=== PATIENT | female | born 1955 | race Native Hawaiian/Other Pacific Islander ===

== ENCOUNTER 2022-12-10 08:29 | Emergency (ER) | payer MEDICARE, MEDICAID, SELFPAY ==
[2022-12-10 08:35] VITALS: BP 168/74; PULSE 92; RESP 16; TEMP 36.1; O2SAT 96; BMI 34.2
--- NOTE | 2022-12-10 08:55 | ED.NURSE ---
given ice to the swollen right hand/wrist area.
--- NOTE | 2022-12-10 09:09 | CRLHL7_ITS ---
For Patients: As a result of the Century Cures Act, medical imaging exams and procedure reports are released immediately into your electronic medical record. You may view this report before your referring provider. If you have questions, please contact your health care provider. Indication: Injury and pain Technique: Right wrist 3 view Comparison: None Findings: There is a comminuted and displaced intra-articular fracture of the distal radial metaphysis. There is up to 3 millimeters of articular surface diastasis along with 2 millimeters of articular surface dorsal impaction at the posterior aspect. Carpal bones are maintained. Intact distal ulna. Impression: Displaced and comminuted intra-articular distal radial metaphyseal fracture with dorsal impaction. Dictated by Valeriano Franz MD @ 12/10/2022 9:34:50 AM (Electronically Signed)
--- NOTE | 2022-12-10 09:09 | CRLHL7_ITS ---
For Patients: As a result of the Century Cures Act, medical imaging exams and procedure reports are released immediately into your electronic medical record. You may view this report before your referring provider. If you have questions, please contact your health care provider. Indication: Fall, thumb pain Technique: Three views right thumb Comparison: None Findings: The 1st metacarpal and thumb phalanges are intact. Degenerative spurring at the thumb IP joint. Distal radial fracture. Impression: Distal radial fracture is present. Dictated by Valeriano Franz MD @ 12/10/2022 9:33:37 AM (Electronically Signed)
[2022-12-10] MEDS: TRAMADOL HCL 50 MG TABLET PO (09:24)
[2022-12-10 10:09] VITALS: PULSE 82; O2SAT 98
--- NOTE | 2022-12-10 10:39 | ED_ITS ---
HPI - Extremity Injury (Upper) General Chief Complaint: Extremity Pain/Injury, Upper Stated Complaint: Fall down, pain in right hand Time Seen by Provider: 12/10/22 08:33 Source: patient and family Mode of arrival: ambulatory Limitations: language barrier (Patient Admitting Clerk used) History of Present Illness HPI narrative: [age] year old female presents to the ED after falling on the ice in her driveway last night. Fall was approximately hours prior to arrival. Had immediate pain in the left wrist. Does have some pain in the left thumb and left elbow but only when moving the thumb. She notes swelling and some de formity. Points at the distal radius as the area of pain. She tried taking some Tylenol with limited improvement in her symptoms. Her son urged her to come in. No fever, no recent surgical procedures. She does take aspirin for cardiac prophylaxis in the setting of diabetes. No prior heart disease. Denies loss of consciousness, head injury or any other affected areas. Past medical history notable for hypertension, type 2 diabetes. She does have diabetic neuropathy. Her medications are reviewed and accurate per listed. Allergies are to codeine which caused vomiting. Socially she is a nonsmoker with no alcohol or illicit drug use. No pertinent travel. Related Data Home Medications Medication Instructions Recorded Confirmed aspirin 81 mg chewable tablet 81 mg PO DAILY 12/10/22 12/10/22 (Aspirin Childrens) gabapentin 100 mg capsule 100 mg PO BID 12/10/22 12/10/22 lisinopril 10 mg tablet 10 mg PO DAILY 12/10/22 12/10/22 metformin 1,000 mg tablet 1,000 mg PO BID 12/10/22 12/10/22 rosvastatin 10 mg PO DAILY 12/10/22 12/10/22 Previous Rx's Medication Instructions Recorded tramadol 50 mg tablet 50 mg PO Q8H PRN pain #14 tabs 12/10/22 Allergies Allergy/AdvReac Type Severity Reaction Status Date / Time codeine Allergy Mild vomit Verified 12/10/22 08:43 PFS PFS Medical History Diabetes Hypertension Neuropathy Social History Smoking Status: Never smoker Do you use any of these nicotine containing products: None How often do you have a drink containing alcohol: never How often do you have six or more drinks on one occasion: Never AUDIT-C Alcohol total score: 0 Non-prescribed substance use: denies use service: No Exam Const: Vital Signs, click to edit/add: Vital Signs - 24 hr 12/10/22 08:35 12/10/22 10:09 Temperature 96.9 F L Pulse Rate [Left P ulse Oximeter] 92 82 Respiratory Rate 16 Blood Pressure [Ri ght Upper Arm] 168/74 H Pulse Oximetry 96 98 Oxygen Delivery Me thod Room Air Room Air Documenting provider has reviewed patient's vital signs: yes Common normals: no apparent distress General appearance: cooperative, comfortable and well kempt HENMT: Common normals: normocephalic and head/scalp atraumatic Head and scalp: normocephalic and atraumatic Mouth: oral and palatal mucosa normal Throat: posterior oropharynx normal Eye: Common normals: EOMs intact bilaterally General eye: normal appearance of both eyes Resp: Common normals: normal respiratory effort and clear to auscultation bilaterally Effort & inspection: able to speak in complete sentences Auscultation: clear to auscultation bilaterally Cardio: Common normals: regular rate, regular rhythm, S1 normal heart sound, S2 normal heart sound and peripheral pulses 2+ throughout Rate: regular rate Rhythm: regular rhythm Heart sounds: S1 normal and S2 normal Peripheral pulses: pulses 2+ throughout Other: Normal radial pulses bilaterally and normal capillary refill of all fingers. Extremity: Other: Left wrist normal, left forearm normal, left hand normal all with normal range of motion. The right elbow has no swelling, tenderness or deformity and has normal range of motion. The fingers on the right hand all have normal abduction and adduction. The thumb has normal flexion, extension and opposition. There is significant swelling to the right CMC joint and deformity noted at the right distal radius. Good radial pulses and normal capillary refill. Point tenderness at the distal radius noted. She does have actually have fairly good flexion and extension abduction and adduction at the wrist. Neuro: Other: No sensory or motor deficits to hand Psych: Common normals: speech normal Appearance: well kempt Speech: normal speech Mood and affect: euthymic mood Insight: insight good Judgement: judgment good Skin: Narrative: No broken skin or abrasions over the area of suspected fracture. Significant bruising of right wrist and hand Course Vital Signs Vital signs: Initial Vital Signs Temperature 96.9 F L 12/10/22 08:35 Temperature Source Temporal Artery Scan 12/10/22 08:35 Pulse Rate 92 12/10/22 08:35 Pulse Rhythm 12/10/22 08:35 Respiratory Rate 16 12/10/22 08:35 Blood Pressure 168/74 H 12/10/22 08:35 Blood Pressure Mean 105 12/10/22 08:35 Blood Pressure Position Sitting 12/10/22 08:35 Pulse Oximetry 96 12/10/22 08:35 Oxygen Delivery Method 12/10/22 08:35 Vital Signs Temperature 96.9 F L 12/10/22 08:35 Pulse Rate 92 12/10/22 08:35 Respiratory Rate 16 12/10/22 08:35 Blood Pressure 168/74 H 12/10/22 08:35 Pulse Oximetry 96 12/10/22 08:35 Oxygen Delivery Method 12/10/22 08:35 Temperature 96.9 F L 12/10/22 08:35 Pulse Rate 82 12/10/22 10:09 Respiratory Rate 16 12/10/22 08:35 Blood Pressure 168/74 H 12/10/22 08:35 Pulse Oximetry 98 12/10/22 10:09 Oxygen Delivery Method 12/10/22 10:09 MDM - Extremity Injury (Upper) MDM Narrative Medical decision making narrative: Suspect fracture. X-rays performed. Trial of tramadol to see how well she tolerates this. Update: Per my interpretation, fracture of distal radius appears to be comminuted with a couple of pieces including extension into the joint line. This is confirmed with radiology report. Because of this I made a call to [facility], they are recommending splinting, outpatient follow-up, will need surgery with plate and screws. This was discussed with patient. She was placed in a short-arm splint with good anatomic alignment. Well tolerated. The tramadol did improve her pain and she did tolerate this well. We discussed Tylenol, ibuprofen, keeping the splint dry, tramadol as needed for severe pain. Ortho will call patient to set up outpatient follow-up and surgery. All questions answered, she verbalizes understanding and agreement. Discharge Plan Discharge Clinical Impression: Closed fracture of head of right radius Patient Disposition: Home w/ Parent or Adult Condition: Improved Instructions: Wrist Fracture in Adults (ED) Additional Instructions: You have fractured your wrist, specifically the radius bone. This is broken technically in 2 places and will need surgery. The registration specialist recommends putting in a plate and some screws to better stabilize this. This will improve healing overall and improve the long-term function of your hand. We need willing to go down for a few days, they will call you and schedule the surgery, likely the middle of next week. Please stop her aspirin in the meantime. It is okay to take Tylenol and/or ibuprofen as needed for pain. I will also send some of the tramadol pills to the pharmacy if the pain is very bothersome. Use the sling if it is more comfortable for you, you are not required to use it. Arm out of the sling when you are resting and especially while sleeping so that you can move your elbow and wrist around to prevent stiffness. Do not get the splint wet. It is okay to try to use plastic coverings and bags in multiple layers to help prevent wetness but showers are not recommended. Sponge baths with help are okay. Te has fracturado la mu?eca, concretamente el hueso del radio. Hilger est? roto t?cnicamente en 2 lugares y necesitar? cirug?a. El ortopedista recomienda poner brenda placa y unos tornillos para estabilizar mejor esto. Hilger mejorar? la curaci?n en general y mejorar? la funci?n a lucrecia plazo de fisher mano. Necesitamos estar dispuesto a bajar por unos d?as, lo llamar?n y programar?n la cirug?a, probablemente a mediados de la pr?xima semana. Por favor, det?n fisher aspirina mientras tanto. Est? omar luis miguel Tylenol y/o ibuprofeno seg?n sea necesario para el dolor. Tambi?n enviar? algunas de las pastillas de tramadol a la farmacia si el dolor es muy molesto. Use el sling si le resulta m?s c?modo, no es obligatorio que lo use. Saque el brazo del cabestrillo cuando est? descansando y especialmente mientras duerme para que pueda filler block inserter remover el codo y la mu?eca para evitar la rigidez. No moje la f?kaycee. Est? omar tratar de usar cubiertas y bolsas de pl?stico en varias capas para ayudar a prevenir la humedad, windy no se recomiendan las duchas. Los ba?os de esponja con ayuda est?n omar Activity Level: Activity as Tolerated Discharge Diet: Diabetic Prescriptions: New tramadol 50 mg tablet 50 mg PO Q8H PRN (Reason: pain) Qty: 14 0RF No Action aspirin [Aspirin Childrens] 81 mg tablet,chewable 81 mg PO DAILY gabapentin 100 mg capsule 100 mg PO BID lisinopril 10 mg tablet 10 mg PO DAILY metformin 1,000 mg tablet 1,000 mg PO BID rosvastatin 10 mg PO DAILY Follow Up/Referrals: Dorothy Torres V, WINDOWS SUPPORT ENGINEER [Primary Care Provider] - Stand Alone Forms: MyHealth Info Instructions
== END 2022-12-10 10:19 | disposition home or self-care (01) ==
PROVIDERS: Emergency Provider Family Medicine; PCP Nurse Practitioner Family
DX: S52.121A Displaced fracture of head of right radius, initial encounter for closed fracture (principal); W00.0XXA Fall on same level due to ice and snow, initial encounter; Y93.01 Activity, walking, marching and hiking; Y92.014 Private driveway to single-family (private) house as the place of occurrence of the external cause
CPT/HCPCS: 29125; 73110; 73140; 99283; A9270

== ENCOUNTER 2022-12-17 11:08 | Day surgery (SDC) | payer MEDICARE, MEDICAID, SELFPAY ==
[2022-12-17] VITALS (9 sets, daily range): BP systolic 81–142; BP diastolic 58–84; PULSE 65–77; RESP 16; TEMP 36.7–36.9; O2SAT 96–99; BMI 35.5
[2022-12-17] MEDS: SODIUM CHLORIDE 0.9 % (FLUSH) 10 ML SYRINGE IVF (12:00)
[2022-12-17] MEDS: LACTATED RINGERS 1000 ML 1,000 ML 100 ML IV (12:00)
[2022-12-17 12:16] LABS: SARS Antigen* negative (Negative)
--- NOTE | 2022-12-17 13:15 | CRLHL7_ITS ---
For Patients: As a result of the Cures Act, medical imaging exams and procedure reports are released immediately into your electronic medical record. You may view this report before your referring provider. If you have questions, please contact your health care provider. INDICATION: Open reduction and internal fixation of the right wrist. History of a displaced comminuted intra-articular fracture of the distal radius. TECHNIQUE: Fluoroscopically guided open reduction internal fixation. Four portable spot intraoperative images were obtained. COMPARISON : Pre-surgical images December 10, 2022. FINDINGS : New plate and screw fixation device bridges the distal right radius. Adequate alignment. No dislocation. 46 seconds fluoroscopy time utilized. IMPRESSION: 46 seconds fluoroscopy time utilized for open reduction internal fixation of the right radial fracture. Dictated by Simon Arredondo MD @ 12/17/2022 5:44:46 PM (Electronically Signed)
--- NOTE | 2022-12-17 13:44 | SUR.PREOP ---
TIME?OUT:?1345 PT/RN/MDA?VERIFICATION?OF?SURGICAL?SITE,?PROCEDURE,?AND?CONSENT OBTAINED?PRIOR?TO?INVASIVE?PROCEDURE.
[2022-12-17] MEDS: MIDAZOLAM HCL 1 MG/ML inj IVP (13:55)
[2022-12-17] MEDS: fentaNYL 100 MCG/2 ML inj IVP (13:55)
--- NOTE | 2022-12-17 14:20 | W.PM.NB ---
Nerve Block Nerve Block Time Seen by Provider: 14:00 Date Seen: 12/17/22 Type of block requested by surgeon for post-operative analgesia: axillary Side: right Time out performed: Yes Verification of patient name: Yes Verification of date of : Yes Site marking: site marked Name of person performing procedure: Latasha Santoyo CRNA Continuous monitoring Was continuous monitoring of O2 sat, B/P, quality assurance monitor final, recorded every 15 minutes?: Yes Procedure Checklist: sterile prep, needles and gloves Ultrasound guided. Images saved: Yes Medications given in 5ml increments after negative aspiration: Ropivicaine %: 0.5 mL: 20 Needle gauge: 20 Decadron (mg): 10 Precedex (mcg): 20 Patient tolerated procedure well: Yes Block Charges Block Charge (with Pro Fee): Axillary Nerve Use of Ultrasound Machine for Block: Yes- US Guidance/pain block
--- NOTE | 2022-12-17 14:58 | SUR.OPER ---
PATIENT QUESTIONS ANSWERED SATISFACTORILY PREOPERATIVELY. PATIENT BROUGHT TO OR #3 PER ON CART AFTER BLOCK.? Patient positioned supine on OR #3 bed.? The perioperative?team supported arms bilaterally on arms boards. Final approval of positioning by surgeon.?
--- NOTE | 2022-12-17 16:06 | P.ORPRC_ITS ---
Procedure Note Date of procedure: 12/17/22 Procedure: PREOPERATIVE DIAGNOSIS: Angulated 3+ part intra-articular right upper extremity distal radius fracture POSTOPERATIVE DIAGNOSIS: Angulated 3+ part intra-articular right upper extremity distal radius fracture NAME OF OPERATION: Open reduction internal fixation SURGEON: Chris Veliz MD WATCH PARTS INSPECTOR: Shanika Meza PA-C ANESTHESIA: Supraclavicular block plus monitored anesthesia care ESTIMATED BLOOD LOSS: 0 mL COMPLICATIONS: None SPECIMENS: None DRAINS: None PREOPERATIVE ANTIBIOTICS: Ancef 2 grams INDICATIONS: The patient is a 67-year-old who fell landing on their upper extremity sustaining the above injury. Given the amount of angulation, reduction and plate fixation were recommended. The risks, benefits and expected outcomes were discussed in detail. These included but were not limited to: Infection, bleeding, injury to blood vessel or nerve, venous thromboembolism. All questions were answered to their satisfaction. Use of an circulation assistant was necessary throughout the case for patient positioning and safety, maintenance of the reduction, surgical site dressing and splint application. PROCEDURE: A supraclavicular block was placed by Anesthesia. The patient was placed supine on the operating room table. IV sedation was administered. The reduction was obtained with longitudinal traction and volar force on the distal fragment, held by the circulation assistant. The image intensifier was used to confirm an excellent reduction. The extremity was prepped and draped in the usual sterile fashion. The limb was exsanguinated with the [place] bandage. The pneumatic tourniquet was inflated to 250 mm of mercury. A longitudinal incision was made over the flexor carpi radialis. Subcutaneous dissection was taken sharply through the FCR sheath. The FCR was retracted radially. Sharp dissection was carried through the floor of the FCR sheath. The flexor pollicis longus was retracted ulnarly. Sharp dissection was carried through the radial border of the pronator quadratus which was elevated ulnarly, exposing the fracture site. The circulation assistant held retractors to expose the fracture. The volar cortex of the fracture is anatomically aligned. We placed a [employer]ynthes standard, 6 hole volar locking plate over the volar cortex. It was provisionally held with 2 K-wires, while the circulation assistant held the reduction. Its placement was confirmed with the image intensifier. We placed a cortical screw in the slot. We placed a locking screw in the shaft. We then filled the distal screw holes with smooth locking pegs using the image intensifier to confirm their extra-articular placement. Finally, a 2nd locking screw was placed in the shaft fragment. This construct was imaged in multiple views and was felt to be well placed with an excellent reduction and well placed implants. The wound was irrigated normal saline. Subcutaneous tissues were reapproximated a 2-0 Vicryl, skin with a running 3-0 Monocryl in a subcuticular fashion. Glue was used to seal the skin. A dry dressing and short-arm dorsal volar splint was applied. These steps were all completed by the circulation assistant. The tourniquet was released, sponge and needle counts were correct x2. The patient tolerated the procedure well, there were no apparent complications. They were taken to the postanesthesia care unit in satisfactory condition. PLAN: The patient will be discharged home. They will work on elevation of the hand and active range of motion of the fingers. They will follow up next week in the office for a wound check with a PA, oblique, lateral and fossa lateral view of the wrist out of the splint prior to being seen in preparation for cast immobilization. Our fixation is tenuous since the distal fragments are small and the bone quality is poor. Our distal locking pegs are essentially in the fracture, propping the articular surface up. Therefore, a well-molded cast with the wrist in a minimal amount of volar flexion will be needed for supplemental fixation x 6 weeks.
--- NOTE | 2022-12-17 16:33 | W.ANESCHARGE ---
Anesthesia Charges Start Date/Time Anesthesia Start Date: 12/17/22 Anesthesia Start Time: 14:36 Stop Date/Time Anesthesia Stop Date: 12/17/22 Anesthesia Stop Time: 16:30 Summary Emergency: No
--- NOTE | 2022-12-17 17:32 | SUR.PHASEII ---
Gordy Jose Interpretor reviewed DC instructions with and pt. All questions answered. Instructions were given in Dominican. Pt up to bathroom. Denies pain. Tolerated water. Declined food. Wheelchair out to car.
== END 2022-12-17 17:35 | disposition home or self-care (01) ==
PROVIDERS: PCP Nurse Practitioner Family; Visit Provider Orthopaedic Surgery
PROC: (CPT 25575; principal; 2022-12-17 13:15)
DX: S52.571A Other intraarticular fracture of lower end of right radius, initial encounter for closed fracture (principal)
CPT/HCPCS: 25609; 01830; 64417; 73110; 76000; 76942; 82962; 87426; T1013; A4580; C1713; J1100; J2250; J2704; J2795; J3010; J3490; J7120

== ENCOUNTER 2022-12-18 11:35 | Emergency (ER) | payer MEDICARE, MEDICAID, SELFPAY ==
[2022-12-18 12:32] VITALS: BP 166/73; PULSE 85; O2SAT 98; BMI 34.2
--- NOTE | 2022-12-18 12:50 | ED_ITS ---
HPI - General Adult General Chief complaint: Post Op Complication Stated complaint: Problems post RT wrist surgery Time Seen by Provider: 12/18/22 12:38 History of Present Illness HPI narrative: This 67-year-old female had surgery on her right wrist yesterday. She had a wrist fracture that was fixated internally. She comes in today reporting numb feeling in her fingers. Related Data Home Medications Medication Instructions Recorded Confirmed aspirin 81 mg chewable tablet 81 mg PO DAILY 12/10/22 12/17/22 (Aspirin Childrens) gabapentin 100 mg capsule 100 mg PO BID 12/10/22 12/17/22 lisinopril 10 mg tablet 10 mg PO DAILY 12/10/22 12/17/22 metformin 1,000 mg tablet 1,000 mg PO BID 12/10/22 12/17/22 rosuvastatin 10 mg tablet 10 mg PO QDAY 12/13/22 12/17/22 Previous Rx's Medication Instructions Recorded tramadol 50 mg tablet 50 mg PO Q8H PRN pain #14 tabs 12/10/22 oxycodone-acetaminophen 5 mg-325 1 - 2 tab PO Q4-6H PRN pain #20 12/17/22 mg tablet (Percocet) tabs Allergies Allergy/AdvReac Type Severity Reaction Status Date / Time codeine Allergy Mild vomit Verified 12/17/22 11:33 duloxetine Allergy Verified 12/17/22 11:33 glimepiride Allergy Diarrhea Verified 12/17/22 11:33 lovastatin Allergy Verified 12/17/22 11:33 Review of Systems Status of ROS: Reports: 10 or more systems reviewed and unremarkable except as noted in History and below Narrative: Constitutional: No fevers, no weight gain or loss. Eyes: No discharge. No vision changes. HENT: No congestion, no sore throat, no ear pain. Cardiovascular: No chest pain, no palpitations. Respiratory: No shortness of breath, no wheezes, no cough. Gastrointestinal: No abdominal pain, no vomiting, no diarrhea. Genitourinary: No dysuria, no hematuria. Musculoskeletal: Right wrist fracture with internal fixation that occurred yesterday. Skin: No rashes, no pruritis. Neurological: No dizziness, weakness, sensory change, speech change. Endo/Heme/Allergies: No bruising or bleeding. No polydipsia. Pysch: no suicidality, no anxiety, no insomnia. All other systems reviewed and are negative. [facility] Medical History (Updated 12/18/22 @ 12:55 by Mani Crockett MD) Arthritis Kenyon's palsy Diabetes DJD (degenerative joint disease) GERD (gastroesophageal reflux disease) Hiatal hernia Hyperlipidemia Hypertension IBS (irritable bowel syndrome) Kidney stone Leukocytosis Neuropathy Obstructive sleep apnea Radiculopathy of lumbar region Rectocele Surgical History (Updated 12/14/22 @ 13:03 by Mali Madrid RN) History of bilateral tubal ligation Hx of arthroscopic knee surgery Hx of cholecystectomy Hx of hernia repair Hx of hysterectomy Hx of laminectomy Hx of total knee arthroplasty Social History Smoking Status: Never smoker Do you use any of these nicotine containing products: None How often do you have a drink containing alcohol: never How often do you have six or more drinks on one occasion: Never AUDIT-C Alcohol total score: 0 Non-prescribed substance use: denies use Caffeine: Yes Are you using contraception or practicing any form of control: No service: No Exam Narrative: Exam Narrative: Constitutional: Well-developed, well-nourished, no acute distress. HEENT: Normocephalic, atraumatic. Neck: Normal range of motion. Nontender. Supple. Heart: Intact distal pulses. Lungs: No chest discomfort. No wheezes, rhonchi, or rales. Abdomen: Nontender. Back: Normal range of motion. Extremities: Normal range of motion. Right wrist is in a volar dorsal splint. Her fingers are warm and she is able to move them. She states that she does not have any sensation of her fingers. Skin: Intact. No rash. Warm. No erythema or pallor. Neurologic: No altered sensation. No weakness. Alert and oriented. Psychiatric: No suicidality. No anxiety or depression. No insomnia. Nursing notes and vitals signs are reviewed. Const: Vital Signs, click to edit/add: Vital Signs - 24 hr 12/18/22 12:32 Pulse Rate [Pulse Oximeter] 85 Blood Pressure [Ri ght Upper Arm] 166/73 H Pulse Oximetry 98 Oxygen Delivery Me thod Room Air Course Vital Signs Vital signs: Initial Vital Signs Pulse Rate 85 12/18/22 12:32 Blood Pressure 166/73 H 12/18/22 12:32 Blood Pressure Mean 104 12/18/22 12:32 Blood Pressure Position Sitting 12/18/22 12:32 Pulse Oximetry 98 12/18/22 12:32 Oxygen Delivery Method 12/18/22 12:32 Vital Signs Pulse Rate 85 12/18/22 12:32 Blood Pressure 166/73 H 12/18/22 12:32 Pulse Oximetry 98 12/18/22 12:32 Oxygen Delivery Method 12/18/22 12:32 Pulse Rate 85 12/18/22 12:32 Blood Pressure 166/73 H 12/18/22 12:32 Pulse Oximetry 98 12/18/22 12:32 Oxygen Delivery Method 12/18/22 12:32 Medical Decision Making MDM Narrative Medical decision making narrative: This patient had a surgery on her left wrist yesterday to repair a fractured wrist. I reviewed the notes and the patient did receive an axillary nerve block for this procedure. She is able to move her fingers and has good capillary refill. Her sensation is impaired likely due to residual affects of that nerve block. I did remove the Mina wrap and gently loosened the splint a bit. The Mina wrap was reapplied. I gave reassurance is to her that her splint is in good position and not restricting flow of blood to her hand and wrist. Most likely her symptoms are explained by the axillary nerve block that is yet dissipating. She is okay to return home to follow-up with current plans. I advised her to return if fingers become cold or other worsening symptoms happen. Discharge Plan Discharge Clinical Impression: Closed fracture of head of right radius Patient Disposition: Home, Self-Care Condition: Stable Additional Instructions: Continue current plans. Follow up with MD as scheduled or return if worsening symptoms happen. Prescriptions: No Action rosuvastatin 10 mg tablet 10 mg PO QDAY aspirin [Aspirin Childrens] 81 mg tablet,chewable 81 mg PO DAILY gabapentin 100 mg capsule 100 mg PO BID lisinopril 10 mg tablet 10 mg PO DAILY metformin 1,000 mg tablet 1,000 mg PO BID tramadol 50 mg tablet 50 mg PO Q8H PRN (Reason: pain) Qty: 14 0RF oxycodone-acetaminophen [Percocet] 5-325 mg tablet 1 - 2 tab PO Q4-6H PRN (Reason: pain) Qty: 20 0RF Follow Up/Referrals: Dorothy Torres V, [employer] [Primary Care Provider] - Stand Alone Forms: [employer] Info Instructions
== END 2022-12-18 13:13 | disposition home or self-care (01) ==
LOC: ED 13:04
PROVIDERS: Emergency Provider Emergency Medicine Emergency Medical Services; PCP Nurse Practitioner Family
DX: L76.82 Other postprocedural complications of skin and subcutaneous tissue (principal); R20.0 Anesthesia of skin; S52.121A Displaced fracture of head of right radius, initial encounter for closed fracture
CPT/HCPCS: 99282; 99283; 99284

== ENCOUNTER 2023-07-21 07:31 | Day surgery (SDC) | payer MEDICARE, SELFPAY ==
[2023-07-21] MEDS: LACTATED RINGERS 1000 ML 1,000 ML 35 ML IV (07:45)
[2023-07-21 07:53] VITALS: BP 177/80; PULSE 76; RESP 16; TEMP 36.8; O2SAT 97; BMI 35.2
[2023-07-21] MEDS: SODIUM CHLORIDE 0.9 % (FLUSH) 10 ML SYRINGE IVF (08:01)
[2023-07-21] MEDS: CEFAZOLIN 2 GM INJ IVP (08:40)
--- NOTE | 2023-07-21 08:47 | W.ANESCHARGE ---
Anesthesia Charges Start Date/Time Anesthesia Start Date: 07/21/23 Anesthesia Start Time: 08:30 Stop Date/Time Anesthesia Stop Date: 07/21/23 Anesthesia Stop Time: 09:31
--- NOTE | 2023-07-21 09:14 | P.ORPRC_ITS ---
Procedure Note Date of procedure: 07/21/23 Procedure: Preop diagnosis: Right upper extremity cubital tunnel syndrome Postop diagnosis: Right upper extremity cubital tunnel syndrome Procedure: Right upper extremity cubital tunnel release Anesthesia: Local plus monitored anesthesia care Surgeon: Chris Veliz MD nursing home assistant administrator: Shanika Meza PA-C EBL: 0 mL Complications: None Specimens: None Drains: None Preoperative antibiotics: Ancef 2 g Indications: The patient has a history of right upper extremity cubital tunnel syndrome symptoms. EMG/nerve conduction study confirms the diagnosis. Despite appropriate nonoperative management they continue to have symptoms. Operative intervention was recommended. The risks, benefits alternatives and expected outcomes were discussed in detail. These included but were not limited to: Infection, bleeding, injury to blood vessel or nerve, venous thromboembolism. All questions were answered to their satisfaction. The patient was placed supine on the operating room table. General anesthesia was administered. The upper extremity was prepped and draped in usual sterile fashion. The limb was exsanguinated with the Orville bandage, the pneumatic tourniquet was inflated to 250 mm of mercury. A longitudinal incision was made centered over the ulnar nerve at the cubital tunnel. Subcutaneous dissection was taken with the scalpel and Metzenbaum and tenotomy scissors to the ulnar nerve. Within the fat over the ulnar nerve there was a crossing nerve, presumably a proprioceptive branch. This was preserved throughout the case. Dissection was carried distally to the fascia over the flexor carpi ulnaris whi ch was divided longitudinally. We visualized the motor branch to the FCU. Dissection was carried proximally into the triceps muscle belly. This results in a wide decompression of the ulnar nerve. Flexion and extension of the elbow shows the nerve is stable. The wound was irrigated with normal saline. It was closed with a 2-0 Vicryl and a 3-0 Monocryl in a subcuticular fashion. Glue was used to seal the skin. A soft dressing was applied. The tourniquet was released. The patient tolerated the procedure well, there were no apparent complications. They were sent to same day surgery in satisfactory condition. Plan: Use of the upper extremity as tolerates. Discontinue the intraoperative dressing on postoperative day 3 and may get the wound wet as tolerates. Follow up in the office in 2 weeks for a wound check.
[2023-07-21 09:30] VITALS: BP 106/66; PULSE 69; RESP 16; TEMP 36.4; O2SAT 93
[2023-07-21 09:45] VITALS: BP 139/89; PULSE 67; RESP 16; O2SAT 96
[2023-07-21 10:00] VITALS: BP 159/93; PULSE 71; RESP 16; O2SAT 96
[2023-07-21 10:15] VITALS: BP 158/79; PULSE 73; RESP 16; O2SAT 96
--- NOTE | 2023-08-04 10:48 | W.ANESCHARGE ---
Anesthesia Charges Start Date/Time Anesthesia Start Date: 07/21/23 Anesthesia Start Time: 08:30 Stop Date/Time Anesthesia Stop Date: 07/21/23 Anesthesia Stop Time: 09:31
== END 2023-07-21 10:33 | disposition home or self-care (01) ==
PROVIDERS: PCP Nurse Practitioner Family; Visit Provider Orthopaedic Surgery
PROC: (CPT 64721; principal; 2023-07-21 08:30)
DX: G56.21 Lesion of ulnar nerve, right upper limb (principal)
CPT/HCPCS: 64718; 1710; A4580; J0690; J1100; J1885; J2405; J2704; J3010; J7120

== ENCOUNTER 2023-08-23 07:55 | Outpatient (CLI) | payer MEDICARE, SELFPAY ==
--- NOTE | 2023-08-23 08:15 | CRLHL7_ITS ---
For Patients: As a result of the Century Cures Act, medical imaging exams and procedure reports are released immediately into your electronic medical record. You may view this report before your referring provider. If you have questions, please contact your health care provider. INDICATION : Cervical radiculopathy. TECHNIQUE : Cervical spine MRI without contrast. The following sequences were obtained: Sagittal T1, T2 weighted and STIR sequences. Axial T2-weighted and gradient sequences. COMPARISON: COMPARISONCervical spine radiographs from 08/11/2023. FINDINGS: Normal cervical lordotic curve. No recent compression fracture or marrow replacing process. Posterior fossa structures are normal. Cervical cord signal is normal. No extraspinal soft tissue abnormalities. Discs/Endplates: Moderate disc height loss and disc desiccation at C5-6 and C6-7. Minimal disc degeneration ulcer. Prominent C6 inferior endplate Schmorl`s node deformity. Findings at individual levels as follows: Craniocervical junction: Alignment is maintained. C2-C3: No spinal canal or neural foraminal stenosis. C3-C4: A small right central protrusion minimally flattens the thecal sac. No spinal canal or neural foraminal stenosis. C4-C5: A shallow central protrusion flattens the thecal sac. No spinal canal or neural foraminal stenosis. C5-C6: Broad-based disc osteophyte complex contacts the ventral cord and contributes to mild spinal canal stenosis. Bilateral uncovertebral arthrosis contributes to mild to moderate right and moderate left neural foraminal stenosis. C6-C7: Broad-based disc osteophyte complex flattens the thecal sac and contributes to mild spinal canal stenosis. Left uncovertebral arthrosis contributes to mild left neural foraminal stenosis. No right neural foraminal stenosis. C7-T1: Trace anterolisthesis. Bilateral facet arthrosis. Mild to moderate oblique neural foraminal stenosis. No spinal canal stenosis. T1-2: No spinal canal or neural foraminal stenosis. IMPRESSION: 1. No advanced spinal canal/neural foraminal stenosis or urmila neural impingement at any imaged cervical level. 2. At C5-6, mild spinal canal stenosis, [id number] right and moderate left neural foraminal stenosis. 3. At C6-7, mild spinal canal stenosis and left neural foraminal stenosis. 4. At C7-T1, trace degenerative anterolisthesis and bilateral facet arthrosis with mild to moderate oblique neural foraminal stenosis. Dictated by Markus Pond MD @ 08/23/2023 11:56:19 AM (Electronically Signed)
== END 2023-08-23 07:56 | disposition home or self-care (01) ==
LOC: MRI 07:56
PROVIDERS: PCP Nurse Practitioner Family; Visit Provider Family Medicine
DX: M54.12 Radiculopathy, cervical region (principal); M48.02 Spinal stenosis, cervical region; M54.2 Cervicalgia
CPT/HCPCS: 72141; T1013